=== PATIENT | female | born 1965 | race African-American/Black ===

== ENCOUNTER 2017-03-18 07:35 | Emergency (ER) | payer OTHER ==
[~2017-03-18] VITALS: Ht 167.6 cm; Wt 52.0 kg
[2017-03-18] VITALS (7 sets, daily range): BP systolic 154–180; BP diastolic 75–93; PULSE 57–84; RESP 16–19; TEMP 97.9; O2SAT 93–96
[~2017-03-18 07:35] MED LIST: AUGM875T PO; HYDR-3533 PO; NAPR500 PO
[2017-03-18] MEDS ORDERED: SODIUM CHLORID 0.9% 500 ML INJ 500 ML IV ONE (08:00)
[2017-03-18] MEDS ORDERED: SODIUM CHLORIDE 0.9% FLUSH 10 ML FLUSH IVF PRN (08:00)
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
[2017-03-18] MEDS: RESP: ALBUTEROL 2.5 MG/IPRATROPIUM 0.5 MG NEB (SCH) INH ×2 (08:08→08:15)
--- NOTE | 2017-03-18 08:10 | RADRPT ---
EXAM DATE/TIME: 03/18/2017 07:58 [facility] COMPARISON: No previous studies available for comparison. INDICATIONS : Short of breath MEDICAL HISTORY : Asthma SURGICAL HISTORY : None. ENCOUNTER: Initial ACUITY: 1 month PAIN SCORE: 0/10 LOCATION: Bilateral chest FINDINGS: A single view of the chest demonstrates the lungs to be symmetrically aerated without evidence of mas s, infiltrate or effusion. The cardiomediastinal contours are unremarkable. Osseous structures are intact. CONCLUSION: No acute disease. Dionte Justice MD on March 18, 2017 at 8:07 Board Certified Radiologist. This report was verified electronically.
[2017-03-18 08:29] LABS: AUTOMATED NEUTROPHIL # 2.4 TH/MM3 (1.8-7.7); BASOPHIL # 0.1 TH/MM3 (0-0.2); BASOPHIL % 1.9 % (0.0-2.0); EOSINOPHIL # 1.1 TH/MM3 (0-0.4); EOSINOPHIL % 17.8 % (0.0-4.0); HEMATOCRIT 40.5 % (35.0-46.0); HEMOGLOBIN 13.9 GM/DL (11.6-15.3); LYMPH % 31.3 % (9.0-44.0); LYMPHOCYTE # 1.9 TH/MM3 (1.0-4.8); MEAN CELL VOLUME 93.3 FL (80.0-100.0); MEAN CORPUSCULAR HEMOGLOBIN 31.9 PG (27.0-34.0); MEAN CORPUSCULAR HGB CONC 34.2 % (32.0-36.0); MONOCYTE # 0.6 TH/MM3 (0-0.9); PLATELET COUNT 239 TH/MM3 (150-450); RED BLOOD COUNT 4.34 MIL/MM3 (4.00-5.30); RED CELL DISTRIBUTION WIDTH 12.8 % (11.6-17.2); WHITE BLOOD COUNT 6.1 TH/MM3 (4.0-11.0)
[2017-03-18 08:54] LABS: ALBUMIN 2.5 GM/DL (3.4-5.0); ALKALINE PHOSPHATASE 71 U/L (45-117); ALT (GPT) 19 U/L (10-53); AST (GOT) 18 U/L (15-37); BICARBONATE 19.9 MEQ/L (21.0-32.0); BLOOD UREA NITROGEN 10 MG/DL (7-18); CHLORIDE 116 MEQ/L (98-107); CREATININE 0.35 MG/DL (0.50-1.00); GLOMERULAR FILTRATION RATE 238 ML/MIN (>89); GLUCOSE,RANDOM 70 MG/DL (74-106); MAGNESIUM 1.4 MG/DL (1.5-2.5); SODIUM (NA) 144 MEQ/L (136-145); TOTAL BILIRUBIN ADULT 0.2 MG/DL (0.2-1.0); TOTAL PROTEIN 5.1 GM/DL (6.4-8.2); TROPONIN I LESS THAN 0.02 NG/ML (0.02-0.05)
[2017-03-18 09:32] LABS: CALCIUM-PROTEIN CORRECTED 6.9 MG/DL (8.5-10.1)
[2017-03-18] MEDS ORDERED: CALCIUM GLUCONATE INJ 1 GM in DEXTROSE 5% IN WATER 100ML INJ 100 ML IV ONE ×2 (09:45)
[2017-03-18] MEDS ORDERED: POTASSIUM CHLOR 20 MEQ PREMIX 100 ML IV ONE (09:45)
[2017-03-18] MEDS ORDERED: POTASSIUM CHLORIDE 20 MEQ CONTROLLED RELEASE TAB PO ONE (09:45)
[2017-03-18] MEDS ORDERED: PRED-503 PO (09:47)
[2017-03-18] MEDS ORDERED: ZITHTAB PO (09:47)
[2017-03-18] MEDS ORDERED: ALBU0.08 NEB (09:47)
[2017-03-18] MEDS ORDERED: VENTAER INH (09:47)
[2017-03-18] MEDS: MAGNESIUM SULFATE 1 GM PREMIX 100 ML IV SCH ×2 (11:20→12:28)
--- NOTE | 2017-03-19 19:14 | EKG ---
Date Performed: 03/18/2017 Time Performed: 08:35:40 PTAGE: 51 years EKG: SINUS BRADYCARDIA BORDERLINE RIGHT AXIS DEVIATION BORDERLINE ECG NO PREVIOUS TRACING DOCTOR: Deny Galicia Interpretating Date/Time 03/19/2017 19:12:51
== END 2017-03-18 15:11 | disposition home or self-care (01) ==
LOC: NEPC 07:35
DX: J40 Bronchitis, not specified as acute or chronic (principal); E87.6 Hypokalemia; E83.42 Hypomagnesemia; E83.51 Hypocalcemia; R00.1 Bradycardia, unspecified; J44.9 Chronic obstructive pulmonary disease, unspecified; Z72.0 Tobacco use; Z79.51 Long term (current) use of inhaled steroids; Z79.899 Other long term (current) drug therapy
CPT/HCPCS: 71045; 80053; 82550; 82552; 83735; 83880; 84484; 85025; 93005; 94640; 94664; 96361; 96365; 96366; 96368; 99285; J0610; J3475; J3480; J7040